=== PATIENT | male | born 1980 | race Caucasian/White ===

== ENCOUNTER 2018-01-27 17:42 | Emergency (ER) | payer OTHER ==
[2018-01-27] MEDS ORDERED: PROCHLORPERAZINE EDISYLATE INJ 10 MG/2 ML VIAL IV ONE (18:37)
[2018-01-27] MEDS ORDERED: NORMAL SALINE 1000 ML 1,000 ML IV ONE (18:37)
[2018-01-27] MEDS ORDERED: ONDANSETRON 4 MG TAB.RAPDIS PO ONE (18:37)
[2018-01-27 19:27] LABS: ABSOLUTE BASOPHILS # (AUTO) 0.1 10^3/uL (0.0-0.2); ABSOLUTE EOSINOPHILS # (AUTO) 0.2 10^3/uL (0.0-0.6); ABSOLUTE LYMPHOCYTES (AUTO) 3.6 10^3/uL (0.5-4.7); ABSOLUTE MONOCYTES (AUTO) 0.5 10^3/uL (0.1-1.4); BASOPHILS % (AUTO) 0.5 % (0-2); EOSINOPHILS % (AUTO) 1.6 % (0-6); HEMATOCRIT 42.8 % (37.9-51.0); HEMOGLOBIN 14.9 g/dL (13.5-17.0); LYMPHOCYTES % (AUTO) 34.8 % (13-45); MEAN CORPUSCULAR HEMOGLOBIN 29.3 pg (27.0-33.4); MEAN CORPUSCULAR HGB CONC 34.7 g/dL (32.0-36.0); MEAN CORPUSCULAR VOLUME 85 fl (80-97); MONOCYTES % (AUTO) 4.7 % (3-13); PLATELET COUNT 316 10^3/uL (150-450); RED BLOOD COUNT 5.07 10^6/uL (4.35-5.55); RED CELL DISTRIBUTION WIDTH 13.1 % (11.5-14.0); SEGMENTED NEUTROPHILS % (AUTO) 58.4 % (42-78); TOTAL CELLS COUNTED % (AUTO) 100 %; WHITE BLOOD COUNT 10.3 10^3/uL (4.0-10.5)
--- NOTE | 2018-01-27 19:38 | RADIOLOGY REPORT (SQ) ---
EXAM DESCRIPTION: CT HEAD WITHOUT COMPLETED DATE/TIME: 01/27/2018 7:24 pm REASON FOR STUDY: migraine oneill 10 day COMPARISON: 11/05/2013. TECHNIQUE: Axial images acquired through the brain without intravenous contrast. Images reviewed wi th bone, brain and subdural windows. Additional sagittal and coronal reconstructions were generated. Images stored on PACS. All CT scanners at this facility use dose modulation, iterative reconstruction, and/or weight based d osing when appropriate to reduce radiation dose to as low as reasonably achievable (ALARA). [facility]: Dose Right [facility]: CareDose [facility]: Dose Right [facility]: Teradose 4D [facility]: Smart [employer] RADIATION DOSE: CT Rad equipment meets quality standard of care and radiation dose reduction techniq ues were employed. CTDIvol: 53.2 mGy. DLP: 1017 mGy-cm. mGy. LIMITATIONS: None. FINDINGS: VENTRICLES: Normal size and contour. CEREBRUM: No masses. No hemorrhage. No midline shift. No evidence for acute infarction. Normal gra y/white matter differentiation. No areas of low density in the white matter. CEREBELLUM: No masses. No hemorrhage. No alteration of density. No evidence for acute infarction. EXTRAAXIAL SPACES: No fluid collections. No masses. ORBITS AND GLOBE: No intra- or extraconal masses. Normal contour of globe without masses. CALVARIUM: No fracture. PARANASAL SINUSES: Nodular mucous membrane thickening in the maxillary sinuses. No fluid. SOFT TISSUES: No mass or hematoma. OTHER: No other significant finding. IMPRESSION: NORMAL BRAIN CT WITHOUT CONTRAST. MAXILLARY SINUS DISEASE. EVIDENCE OF ACUTE STROKE: NO. COMMENT: Quality ID # [id number]: Final reports with documentation of one or more dose reduction techniques (e.g., Automated exposure control, adjustment of the mA and/or kV according to patient size, use of iterative reconstruction technique) TECHNICAL DOCUMENTATION: JOB ID: [id number] [employer]- All Rights Reserved Reading location - IP/workstation name: [email or web address]
--- NOTE | 2018-01-27 19:44 | ER Document Report ---
ED Headache - General Chief Complaint: Headache Stated Complaint: SEVERE HEADACHES Time Seen by Provider: 01/27/18 18:32 Notes: Patient is a 37-year-old male that comes emergency department for chief complaint of headache. He states he has a history of migraines, he got a migraine 10 days ago that occurred while he was outside working in the heat, he states that he hydrated over the next 2 days and then the third day when he started having headache he took sumatriptan and his headache resolved. He states he was doing better but then daily he keeps getting rebound headaches. He states today he had a severe one where he threw up and he thinks he passed out. He is describing photophobia, nausea, neck constant throbbing and pressure especially with the right side of his head. He denies fever chills, head injury, he states he had a head injury while he was in the service in the past. He is on Topamax, gabapentin, Flexeril. He also has IBS-D, just takes Lomotil for this. He follows with the [facility] clinic. TRAVEL OUTSIDE OF THE [place] IN LAST 30 DAYS: No - Related Data Allergies/Adverse Reactions: No Known Allergies Allergy (Verified 01/27/18 18:23) Past Medical History - General Information source: Patient - Social History Smoking Status: Current Every Day Smoker Chew tobacco use (# tins/day): No Drug Abuse: None Lives with: Family Family History: Other - unable to obtain Patient has suicidal ideation: No Patient has homicidal ideation: No Neurological Medical History: Reports: Hx Migraine Renal/ Medical History: Denies: Hx Peritoneal Dialysis GI Medical History: Reports: Hx Gastroesophageal Reflux Disease Psychiatric Medical History: Reports: Hx Post Traumatic Stress Disorder Past Surgical History: Reports: Hx Appendectomy, Hx Bowel Surgery, Hx Oral Surgery, Hx Orthopedic Surgery - knee, Hx Tonsillectomy Review of Systems - Review of Systems Constitutional: No symptoms reported EENT: No symptoms reported Cardiovascular: No symptoms reported Respiratory: No symptoms reported Gastrointestinal: See HPI Genitourinary: No symptoms reported Male Genitourinary: No symptoms reported Musculoskeletal: No symptoms reported Skin: No symptoms reported Hematologic/Lymphatic: No symptoms reported Neurological/Psychological: See HPI Physical Exam - Vital signs Vitals: Temp Pulse Resp BP Pulse Ox 99.1 F 112 H 16 149/93 H 97 01/27/18 17:48 01/27/18 17:48 01/27/18 17:48 01/27/18 17:48 01/27/18 17:48 - Notes Notes: GENERAL: Alert, interacts well. Patient squinting his eyes and appears to be uncomfortable. HEAD: Normocephalic, atraumatic. EYES: Pupils equal, round, and reactive to light. Extraocular movements intact. ENT: Oral mucosa moist, tongue midline. [Nares patent, no nasal septal hematoma , TM's intact.] NECK: Full range of motion. Supple. Trachea midline. Specifically no nuchal rigidity. LUNGS: Clear to auscultation bilaterally, no wheezes, rales, or rhonchi. No respiratory distress. HEART: Regular rate and rhythm. No murmur ABDOMEN: Soft, non-tender. Non-distended. Bowel sounds present in all 4 quadrants. EXTREMITIES: Moves all 4 extremities spontaneously. No edema, normal radial and dorsalis pedis pulses bilaterally. No cyanosis. BACK: no cervical, thoracic, lumbar midline tenderness. No saddle anesthesia, normal distal neurovascular exam. NEUROLOGICAL: Alert and oriented x3. Normal speech. [cranial nerves II through XII grossly intact]. SKIN: Warm, dry, normal turgor. No rashes or lesions noted. Course - Re-evaluation Re-evalutation: Patient has a normal neurological exam, however he does appear very uncomfortable, CAT scan from triage was reviewed, shows no acute findings. Possible maxillary sinus disease. Patient was medicated for his headache, on reevaluation patient sleeping, he was aroused, afterwards he states his headache is completely gone. Due to intermittent headaches with history of headaches, description of headache, no sudden onset, and complete resolution I have low suspicion of meningitis, subarachnoid hemorrhage, venous sinus thrombosis, or other emergent etiology. Vital signs unremarkable, mild tachycardia has normalized, no nuchal rigidity or fever, no other symptoms reported. Patient stating he is ready to leave. Discussed workup, follow-up, return precautions with patient in detail. Forgot to discuss questionable maxillary sinus disease from CAT scan with patient, he did not have any congestion or maxillary sinus tenderness, however I called him at [phone] and left a message after he did not brick picker with multiple attempts, informed him of this finding and different considerations. - Vital Signs Vital signs: Temp Pulse Resp BP Pulse Ox 97.6 F 76 18 137/79 H 96 01/27/18 22:04 01/27/18 22:04 01/27/18 22:04 01/27/18 22:04 01/27/18 22:04 - Laboratory Result Diagrams: 01/27/18 19:05 01/27/18 19:05 Laboratory results interpreted by me: 01/27/18 19:05 Chloride 108 H Discharge - Discharge Clinical Impression: Headache Qualifiers: Headache type: unspecified Headache chronicity pattern: acute headache Intractability: not intractable Qualified Code(s): R51 - Headache Vomiting Qualifiers: Vomiting type: unspecified Vomiting Intractability: non-intractable Nausea presence: with nausea Qualified Code(s): R11.2 - Nausea with vomiting, unspecified Episode of syncope Qualifiers: Syncope type: unspecified Qualified Code(s): R55 - Syncope and collapse Condition: Stable Disposition: HOME, SELF-CARE Additional Instructions: Your evaluation in response to treatment are most consistent with a migraine. The imaging of your head, the laboratory workup, and your evaluation otherwise do not show any concerning findings. Continue current medications for headaches , follow-up with your provider for additional management. See additional recommendations on syncope listed below. Return if you worsen including fever, vomiting, passing out again, severe headache, or any other concerning symptoms. Syncopal Episode Syncope (fainting or near-fainting) can occur from many different health problems. Or it can be a simple fainting spell requiring no treatment. It is safe for you to go home, but further evaluation will likely be necessary. Your work-up may include tests for internal bleeding, heart disease, medication problems, or near-strokes. Tests are not always required, however, depending on the nature of your problem. The warning signs of an impending faint include: dizziness, lightheadedness , nausea, hot flashes, tingling, and weakness. If this happens, lay down and put your feet up, then wait until all of these symptoms have passed before standing up again. If these episodes become recurrent, or if you develop chest pain, heart palpitations, mental confusion, blurred vision, or headache, then you should call the physician, or go to the emergency room. Forms: Return to Work
[2018-01-27] MEDS ORDERED: KETOROLAC TROMETHAMINE INJ/PF 30 MG/1 ML SDV IV ONE (19:45)
[2018-01-27] MEDS ORDERED: DEXAMETHASONE SOD PHOS INJ 10 MG/1 ML VIAL IV ONE (19:45)
[2018-01-27] MEDS ORDERED: DIPHENHYDRAMINE HCL 50 MG/ML VIAL IV ONE (19:45)
[2018-01-27 19:47] LABS: ANION GAP 13 (5-19); BLOOD UREA NITROGEN 17 mg/dL (7-20); CALCIUM 9.5 mg/dL (8.4-10.2); CARBON DIOXIDE 22 mmol/L (22-30); CHLORIDE 108 mmol/L (98-107); GLUCOSE 84 mg/dL (75-110); POTASSIUM 3.9 mmol/L (3.6-5.0); SODIUM 142.7 mmol/L (137-145)
--- NOTE | 2018-01-27 19:52 | ER Document Report ---
ED Medical Screen (RME) - General Chief Complaint: Headache Stated Complaint: SEVERE HEADACHES Time Seen by Provider: 01/27/18 18:32 TRAVEL OUTSIDE OF THE [place] IN LAST 30 DAYS: No - HPI Notes: 01/27/18 19:52 Chronic migraine with no relief in his pain with home meds no current imaging no trauma - Related Data Allergies/Adverse Reactions: No Known Allergies Allergy (Verified 01/27/18 18:23) Past Medical History - Social History Chew tobacco use (# tins/day): No Drug Abuse: None Neurological Medical History: Reports: Hx Migraine Renal/ Medical History: Denies: Hx Peritoneal Dialysis GI Medical History: Reports: Hx Gastroesophageal Reflux Disease Psychiatric Medical History: Reports: Hx Post Traumatic Stress Disorder Past Surgical History: Reports: Hx Appendectomy, Hx Bowel Surgery, Hx Oral Surgery, Hx Orthopedic Surgery - knee, Hx Tonsillectomy Review of Systems - Review of Systems Constitutional: Other - Migraine headache Physical Exam - Vital signs Vitals: Temp Pulse Resp BP Pulse Ox 99.1 F 112 H 16 149/93 H 97 01/27/18 17:48 01/27/18 17:48 01/27/18 17:48 01/27/18 17:48 01/27/18 17:48 - General General appearance: Appears well In distress: None Course - Vital Signs Vital signs: Temp Pulse Resp BP Pulse Ox 99.1 F 112 H 16 149/93 H 97 01/27/18 17:48 01/27/18 17:48 01/27/18 17:48 01/27/18 17:48 01/27/18 17:48 - Laboratory Result Diagrams: 01/27/18 19:05 01/27/18 19:05 Laboratory results interpreted by me: 01/27/18 19:05 Chloride 108 H
[2018-01-27 22:05] VITALS: BP 137/79
== END 2018-01-27 22:05 | disposition home or self-care (01) ==
LOC: ER 17:42
DX: R51 Headache (principal); R11.2 Nausea with vomiting, unspecified; R55 Syncope and collapse; F17.200 Nicotine dependence, unspecified, uncomplicated
CPT/HCPCS: 99284; 96361; 96374; 96375; 36415; 85025; 80048; 70450; J1200; S0119; J1885; J0780; J7030; J1100

== ENCOUNTER 2018-09-14 14:39 | Emergency (ER) | payer OTHER ==
[2018-09-14] MEDS ORDERED: ONDANSETRON 4 MG TAB.RAPDIS PO ONE (16:45)
[2018-09-14] MEDS ORDERED: IBUPROFEN 800 MG TABLET PO ONE (16:45)
--- NOTE | 2018-09-14 16:47 | ER Document Report ---
ED Medical Screen (RME) - General Chief Complaint: Headache Stated Complaint: HEADACHE Time Seen by Provider: 09/14/18 16:45 Mode of Arrival: Ambulatory Information source: Patient Notes: 37-year-old male presented to ED for complaint of migraine for the last 30 days. He states he has not used his nerve stimulator ibuprofen ibuprofen gabapentin Adderall naproxen tripped and multiple other medications with no relief. He states he has had headaches as long as 108 days in the past. He states he goes to the [facility] and they sent him to the emergency room. He states he has a history of a tonsillectomy and appendectomy and soft palate removal uvula removal: [facility] knee surgeries 14 ingrown toenail removals and ganglion cyst and multiple mole removals. 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 Knee injuries and TBI while in the . He states he also has PTSD anxiety ADD and is homeless living in his car. Patient states since his kicked him out of the house and The house and the kids he has been living out of his car and has increased his cigarettes to a pack a day and drink occasionally. I have greeted and performed a rapid initial assessment of this patient. A comprehensive ED assessment and evaluation of the patient, analysis of test results and completion of medical decision making process will be conducted by an additional ED providers. TRAVEL OUTSIDE OF THE [place] IN LAST 30 DAYS: No - Related Data Allergies/Adverse Reactions: No Known Allergies Allergy (Verified 09/14/18 14:43) Past Medical History - Social History Chew tobacco use (# tins/day): No Frequency of alcohol use: Occasional Drug Abuse: None Neurological Medical History: Reports: Hx Migraine Renal/ Medical History: Denies: Hx Peritoneal Dialysis GI Medical History: Reports: Hx Gastroesophageal Reflux Disease Psychiatric Medical History: Reports: Hx Attention Deficit Hyperactivity Disorder, Hx Depression - PTSD/Anxiety, Hx Post Traumatic Stress Disorder Past Surgical History: Reports: Hx Abdominal Surgery - colon stapled/3in removed, Hx Appendectomy, Hx Bowel Surgery, Hx Oral Surgery - molars/wisdom teeth, Hx Orthopedic Surgery - knee, Hx Tonsillectomy - &uvula/soft palate Physical Exam - Vital signs Vitals: Temp Pulse Resp BP Pulse Ox 98.2 F 111 H 18 145/104 H 96 09/14/18 14:45 09/14/18 14:45 09/14/18 14:45 09/14/18 14:45 09/14/18 14:45 Course - Vital Signs Vital signs: Temp Pulse Resp BP Pulse Ox 98.2 F 111 H 18 145/104 H 96 09/14/18 14:45 09/14/18 14:45 09/14/18 14:45 09/14/18 14:45 09/14/18 14:45
[2018-09-14 18:17] LABS: ABSOLUTE BASOPHILS # (AUTO) 0.1 10^3/uL (0.0-0.2); ABSOLUTE EOSINOPHILS # (AUTO) 0.1 10^3/uL (0.0-0.6); ABSOLUTE LYMPHOCYTES (AUTO) 3.1 10^3/uL (0.5-4.7); ABSOLUTE MONOCYTES (AUTO) 0.7 10^3/uL (0.1-1.4); ABSOLUTE NEUT (AUTO) 4.4 10^3/uL (1.7-8.2); BASOPHILS % (AUTO) 0.8 % (0-2); EOSINOPHILS % (AUTO) 0.9 % (0-6); HEMATOCRIT 46.1 % (37.9-51.0); HEMOGLOBIN 16.1 g/dL (13.5-17.0); LYMPHOCYTES % (AUTO) 37.1 % (13-45); MEAN CORPUSCULAR HEMOGLOBIN 29.7 pg (27.0-33.4); MEAN CORPUSCULAR HGB CONC 34.9 g/dL (32.0-36.0); MEAN CORPUSCULAR VOLUME 85 fl (80-97); MONOCYTES % (AUTO) 8.4 % (3-13); PLATELET COUNT 304 10^3/uL (150-450); RED BLOOD COUNT 5.41 10^6/uL (4.35-5.55); RED CELL DISTRIBUTION WIDTH 12.8 % (11.5-14.0); SEGMENTED NEUTROPHILS % (AUTO) 52.8 % (42-78); TOTAL CELLS COUNTED % (AUTO) 100 %; WHITE BLOOD COUNT 8.4 10^3/uL (4.0-10.5)
[2018-09-14 18:36] LABS: ALANINE AMINOTRANSFERASE 42 U/L (21-72); ALKALINE PHOSPHATASE 73 U/L (38-126); ANION GAP 12 (5-19); ASPARTATE AMINO TRANSFERASE 23 U/L (17-59); BILIRUBIN,DIRECT 0.2 mg/dL (0.0-0.4); BILIRUBIN,TOTAL 0.3 mg/dL (0.2-1.3); BLOOD UREA NITROGEN 18 mg/dL (7-20); CALCIUM 9.2 mg/dL (8.4-10.2); CARBON DIOXIDE 26 mmol/L (22-30); CHLORIDE 102 mmol/L (98-107); GLUCOSE 92 mg/dL (75-110); POTASSIUM 4.1 mmol/L (3.6-5.0); SODIUM 139.8 mmol/L (137-145); TOTAL PROTEIN 7.5 g/dL (6.3-8.2)
[2018-09-14 19:13] LABS: APPEARANCE,URINE CLEAR; BILIRUBIN,URINE NEGATIVE (NEGATIVE); COLOR,URINE YELLOW; GLUCOSE, URINE NEGATIVE (NEGATIVE); KETONES,URINE NEGATIVE (NEGATIVE); LEUKOCYTE ESTERASE,URINE NEGATIVE (NEGATIVE); NITRITE,URINE NEGATIVE (NEGATIVE); PROTEIN,URINE NEGATIVE (NEGATIVE); URINE SPECIFIC GRAVITY 1.016; UROBILINOGEN,URINE NEGATIVE mg/dL (<2.0)
[2018-09-14 19:27] LABS: URINE AMPHETAMINES SCREEN UNCONFIRMED POSITIVE; URINE BARBITURATES SCREEN NEGATIVE; URINE BENZODIAZEPINES SCREEN NEGATIVE; URINE COCAINE SCREEN NEGATIVE; URINE MARIJUANA (THC) SCREEN NEGATIVE; URINE METHADONE SCREEN NEGATIVE; URINE PHENCYCLIDINE SCREEN NEGATIVE
[2018-09-14] MEDS ORDERED: DIPHENHYDRAMINE HCL 50 MG/ML VIAL IV ONE (20:07)
[2018-09-14] MEDS ORDERED: PROCHLORPERAZINE EDISYLATE INJ 10 MG/2 ML VIAL IV ONE (20:07)
[2018-09-14] MEDS: NORMAL SALINE 1000 ML 1,000 ML IV PRN ×2 (20:19→22:35)
[2018-09-14] MEDS ORDERED: DEXAMETHASONE SOD PHOS INJ 10 MG/1 ML VIAL IV ONE (20:32)
[2018-09-14] MEDS: MAGNESIUM SULFATE/D5W 1 GM/100 ML RTUPB IV SCH ×2 (20:42→21:48)
[2018-09-15 00:56] VITALS: BP 131/77
--- NOTE | 2018-09-15 03:14 | ER Document Report ---
Entered by BELGICA NUÑEZ SCRIBE 09/14/[id number] Acting as scribe for:ISIDRO BE DO ED Headache - General Chief Complaint: Headache Stated Complaint: HEADACHE Time Seen by Provider: 09/14/18 16:45 Primary Care Provider: [facility] [Primary Care Provider] - Follow up as needed Mode of Arrival: Ambulatory Notes: 37-year-old male who presents to the emergency department today with complaints of a right-sided headache. Patient suffers from chronic migraines and states they usually last for several weeks. Patient states that his current headache is been present for 38-40 days. Patient states he called his neurologist, Dr. Nunez, who told him to come into the emergency department tonight. Patient denies any trauma, numbness, tingling, or weakness. TRAVEL OUTSIDE OF THE [place] IN LAST 30 DAYS: No - Related Data Allergies/Adverse Reactions: No Known Allergies Allergy (Verified 09/14/18 14:43) Past Medical History - General Information source: Patient - Social History Smoking Status: Current Every Day Smoker Cigarette use (# per day): Yes Chew tobacco use (# tins/day): No Frequency of alcohol use: Occasional Drug Abuse: None Family History: Other - unable to obtain Patient has suicidal ideation: No Patient has homicidal ideation: No Neurological Medical History: Reports: Hx Migraine GI Medical History: Reports: Hx Gastroesophageal Reflux Disease Psychiatric Medical History: Reports: Hx Attention Deficit Hyperactivity Disorder - on Adderall, Hx Depression - PTSD/Anxiety, Hx Post Traumatic Stress Disorder Past Surgical History: Reports: Hx Abdominal Surgery - colon stapled/3in removed, Hx Appendectomy, Hx Bowel Surgery, Hx Oral Surgery - molars/wisdom teeth, Hx Orthopedic Surgery - knee, Hx Tonsillectomy - &uvula/soft palate Review of Systems - Review of Systems Constitutional: No symptoms reported EENT: No symptoms reported Cardiovascular: No symptoms reported Respiratory: No symptoms reported Gastrointestinal: No symptoms reported Genitourinary: No symptoms reported Male Genitourinary: No symptoms reported Musculoskeletal: No symptoms reported Skin: No symptoms reported Hematologic/Lymphatic: No symptoms reported Neurological/Psychological: See HPI, Headaches. denies: Weakness -: Yes All other systems reviewed and negative Physical Exam - Vital signs Vitals: Temp Pulse Resp BP Pulse Ox 98.2 F 111 H 18 145/104 H 96 09/14/18 14:45 09/14/18 14:45 09/14/18 14:45 09/14/18 14:45 09/14/18 14:45 Interpretation: Normal - General General appearance: Appears well, Alert - HEENT Head: Normocephalic, Atraumatic Eyes: Normal Pupils: PERRL - Respiratory Respiratory status: No respiratory distress Chest status: Nontender Breath sounds: Normal Chest palpation: Normal - Cardiovascular Rhythm: Regular, Tachycardia Heart sounds: Normal auscultation Murmur: No - Abdominal Inspection: Normal Distension: No distension Bowel sounds: Normal Tenderness: Nontender Organomegaly: No organomegaly - Back Back: Normal, Nontender - Extremities General upper extremity: Normal inspection, Nontender, Normal color, Normal ROM, Normal temperature General lower extremity: Normal inspection, Nontender, Normal color, Normal ROM, Normal temperature, Normal weight bearing. No: Jean Marie's sign - Neurological Neuro grossly intact: Yes Cognition: Normal Orientation: AAOx4 [place] Coma Scale Eye Opening: Spontaneous Felipe Coma Scale Verbal: Oriented [place] Coma Scale Motor: Obeys Commands [place] Coma Scale Total: 15 Speech: Normal Cranial nerves: Normal Motor strength normal: LUE, RUE, LLE, RLE Sensory: Normal - Psychological Associated symptoms: Normal affect, Normal mood - Skin Skin Temperature: Warm Skin Moisture: Dry Skin Color: Normal Course - Re-evaluation Re-evalutation: 09/14/18 21:25 Patient is sleeping and in no apparent pain 09/15/18 00:12 Patient's headache is nearly completely gone. Offered more Compazine the patient states he would prefer to go home. Given a list of medications that he received in the emergency department so that he can follow-up with his neurologist. Of note, imaging of head from January was within normal limits. Patient is at his baseline. Neurovascularly intact. No acute findings on blood work. Stable for discharge. Return if any worsening or concerning symptoms. Understands agrees with plan. Stable for discharge home. Grateful for care. - Vital Signs Vital signs: Temp Pulse Resp BP Pulse Ox 97.6 F 72 19 131/77 H 98 09/15/18 00:46 09/15/18 00:46 09/15/18 00:46 09/15/18 00:46 09/15/18 00:46 - Laboratory Result Diagrams: 09/14/18 17:55 09/14/18 17:55 Laboratory results interpreted by me: 09/14/18 17:55 Urine Blood MODERATE H Discharge - Discharge Clinical Impression: Headache Qualifiers: Headache type: unspecified Headache chronicity pattern: episodic headache Intractability: not intractable Qualified Code(s): R51 - Headache Condition: Stable Disposition: HOME, SELF-CARE Instructions: Migraine Headache ([facility]) Prescriptions: Ondansetron [Zofran Odt 4 mg Tablet] 4 mg PO Q4HP PRN #30 tab.rapdis PRN Reason: Prochlorperazine Maleate [Compazine 10 mg Tablet] 10 mg PO ASDIR PRN #20 tablet PRN Reason: Referrals: [facility] [Primary Care [facility]] - Follow up tomorrow Terry Attestation: 09/15/18 03:14 I personally performed the services described in the documentation, reviewed and edited the documentation which was dictated to the scribe in my presence, and it accurately records my words and actions. Scribe Documentation - Scribe Written by Terry:: Terry Davenport, 09/14/[id number] acting as scribe for :: Ruby I personally performed the services described in the documentation, reviewed and edited the documentation which was dictated to the scribe in my presence, and it accurately records my words and actions.
== END 2018-09-15 00:56 | disposition home or self-care (01) ==
LOC: ER 14:39
DX: R51 Headache (principal); F17.210 Nicotine dependence, cigarettes, uncomplicated
CPT/HCPCS: 99284; 96361; 96375; 96365; 96366; 36415; 85025; 80053; 81001; 80307; J1200; S0119; J3475; J0780; J7030; J1100

== ENCOUNTER 2019-10-29 22:42 | Emergency (ER) | payer OTHER ==
[2019-10-29] MEDS ORDERED: ONDANSETRON HCL INJ/PF 4 MG/2 ML SDV IV ONE (23:20)
[2019-10-29] MEDS ORDERED: MORPHINE SULFATE 10 MG/ML INJ IV ONE (23:20)
--- NOTE | 2019-10-29 23:21 | ER Document Report ---
ED Medical Screen (RME) - General Chief Complaint: Back Pain Stated Complaint: BACK PAIN/LOSS OF LEG FEELING Primary Care Provider: [facility] [Primary Care Provider] - Follow up as needed Notes: Patient is a 39-year-old white male with a past medical history of chronic lower back pain who presents to the emergency department the chief complaint of acute on chronic lower back pain. States the pain started earlier today primarily in the left low back. Radiation to bilateral legs. States the legs occasionally feel weak from time to time. Admits to some urinary troubles with hesitancy. Admits to chronic microscopic hematuria that was evaluated by urology and noted to be normal. Denies history of kidney stones. I have treated and performed a rapid initial assessment of this patient. A comprehensive ED assessment and evaluation of the patient, analysis of test results and completion of medical decision making process will be conducted by additional ED providers. PHYSICAL EXAMINATION: GENERAL: Well-appearing, well-nourished and in no acute distress. A&Ox4. Answers questions appropriately. TRAVEL OUTSIDE OF THE [place] IN LAST 30 DAYS: No - Related Data Allergies/Adverse Reactions: No Known Allergies Allergy (Verified 09/14/18 14:43) Home Medications: ritailin, Past Medical History Neurological Medical History: Reports: Hx Migraine Renal/ Medical History: Denies: Hx Peritoneal Dialysis GI Medical History: Reports: Hx Gastroesophageal Reflux Disease Psychiatric Medical History: Reports: Hx Attention Deficit Hyperactivity Disorder - on Adderall, Hx Depression - PTSD/Anxiety, Hx Post Traumatic Stress Disorder Past Surgical History: Reports: Hx Abdominal Surgery - colon stapled/3in removed, Hx Appendectomy, Hx Bowel Surgery, Hx Oral Surgery - molars/wisdom teeth, Hx Orthopedic Surgery - knee, Hx Tonsillectomy - &uvula/soft palate Physical Exam - Vital signs Vitals: Temp Pulse Resp BP Pulse Ox 97.3 F 122 H 24 H 189/89 H 98 10/29/19 22:48 10/29/19 22:48 10/29/19 22:48 10/29/19 22:48 10/29/19 22:48 Course - Vital Signs Vital signs: Temp Pulse Resp BP Pulse Ox 97.3 F 122 H 24 H 189/89 H 98 10/29/19 22:48 10/29/19 22:48 10/29/19 22:48 10/29/19 22:48 10/29/19 22:48 Doctor's Discharge - Discharge Referrals: [facility] [Primary Care [facility]] - Follow up as needed
[2019-10-30 00:27] LABS: ABSOLUTE BASOPHILS # (AUTO) 0.1 10^3/uL (0.0-0.2); ABSOLUTE EOSINOPHILS # (AUTO) 0.1 10^3/uL (0.0-0.6); ABSOLUTE LYMPHOCYTES (AUTO) 3.1 10^3/uL (0.5-4.7); ABSOLUTE MONOCYTES (AUTO) 0.6 10^3/uL (0.1-1.4); TOTAL CELLS COUNTED % (AUTO) 100 %
[2019-10-30 00:35] LABS: ABSOLUTE NEUT (AUTO) 6.1 10^3/uL (1.7-8.2); BASOPHILS % (AUTO) 0.5 % (0-2); EOSINOPHILS % (AUTO) 1.3 % (0-6); HEMATOCRIT 42.4 % (37.9-51.0); HEMOGLOBIN 14.9 g/dL (13.5-17.0); LYMPHOCYTES % (AUTO) 31.1 % (13-45); MEAN CORPUSCULAR HEMOGLOBIN 29.5 pg (27.0-33.4); MEAN CORPUSCULAR VOLUME 84 fl (80-97); MONOCYTES % (AUTO) 5.8 % (3-13); PLATELET COUNT 333 10^3/uL (150-450); RED BLOOD COUNT 5.03 10^6/uL (4.35-5.55); RED CELL DISTRIBUTION WIDTH 13.1 % (11.5-14.0); SEGMENTED NEUTROPHILS % (AUTO) 61.3 % (42-78); WHITE BLOOD COUNT 9.9 10^3/uL (4.0-10.5)
[2019-10-30 01:09] LABS: APPEARANCE,URINE SLIGHTLY-CLOUDY; BILIRUBIN,URINE NEGATIVE (NEGATIVE); COLOR,URINE YELLOW; GLUCOSE, URINE NEGATIVE (NEGATIVE); KETONES,URINE TRACE mg/dL (NEGATIVE); LEUKOCYTE ESTERASE,URINE NEGATIVE (NEGATIVE); NITRITE,URINE NEGATIVE (NEGATIVE); PROTEIN,URINE 30 mg/dL (NEGATIVE); URINE SPECIFIC GRAVITY 1.029; UROBILINOGEN,URINE NEGATIVE mg/dL (<2.0)
[2019-10-30] MEDS ORDERED: METHYLPREDNISOLONE INJ 125 MG/2 ML SDV IV ONE (01:20)
[2019-10-30 01:44] LABS: ALBUMIN 4.2 g/dL (3.5-5.0); ALKALINE PHOSPHATASE 56 U/L (38-126); ANION GAP 5 (5-19); ASPARTATE AMINO TRANSFERASE 26 U/L (17-59); BILIRUBIN,TOTAL 0.5 mg/dL (0.2-1.3); BLOOD UREA NITROGEN 21 mg/dL (7-20); CALCIUM 9.3 mg/dL (8.4-10.2); CARBON DIOXIDE 27 mmol/L (22-30); CHLORIDE 103 mmol/L (98-107); GLUCOSE 86 mg/dL (75-110); POTASSIUM 4.4 mmol/L (3.6-5.0); TOTAL PROTEIN 6.9 g/dL (6.3-8.2)
[2019-10-30] MEDS ORDERED: MORPHINE SULFATE 10 MG/ML INJ IV ONE (02:53)
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
[2019-10-30] MEDS ORDERED: DIAZEPAM INJ 10 MG/2 ML DISP.SYRIN IV ONE (03:18)
--- NOTE | 2019-10-30 04:35 | RADIOLOGY REPORT (SQ) ---
EXAM: XR Lumbosacral Spine, 5 Views EXAM DATE/TIME: 10/30/2019 4:07 AM CLINICAL HISTORY: The patient is 39 years old and is Male; lumbar pain TECHNIQUE: Frontal, lateral and oblique views of the lumbar spine. COMPARISON: No relevant prior studies available. FINDINGS: VERTEBRAE: No obvious acute fracture. Normal alignment. SACRUM/COCCYX: Unremarkable as visualized. No acute fracture. DISC SPACES: No acute findings. No significant narrowing. SOFT TISSUES: Unremarkable. IMPRESSION: No acute findings.
--- NOTE | 2019-10-30 06:08 | RADIOLOGY REPORT (SQ) ---
EXAM: CT Angiography Abdomen and Pelvis Without and With Intravenous Contrast EXAM DATE/TIME: 10/30/2019 4:48 AM CLINICAL HISTORY: The patient is 39 years old and is Male; low back pain and hematuria TECHNIQUE: Axial computed tomographic angiography images of the abdomen and pelvis without and with intravenous contrast. Sagittal and coronal reformatted images were created and reviewed. Delayed images were obtained. This CT exam was performed using one or more of the following dose reduction techniques: automated exposure control, adjustment of the mA and/or kV according to patient size, and/or use of iterative reconstruction technique. MIP reconstructed images were created and reviewed. COMPARISON: Radiographs of the lumbar spine from 10/30/2019 FINDINGS: VASCULATURE: AORTA: No acute findings. No abdominal aortic aneurysm. No dissection. CELIAC TRUNK AND MESENTERIC ARTERIES: No acute findings. No occlusion or significant stenosis. RENAL ARTERIES: No acute findings. No occlusion or significant stenosis. ILIAC ARTERIES: No acute findings. No occlusion or significant stenosis. LUNG BASES: Minimal dependent atelectasis in the lung bases. ABDOMEN: LIVER: There is mild diffuse fatty infiltration of the liver. No obvious liver mass. GALLBLADDER AND BILE DUCTS: Unremarkable. No calcified stones. No significant biliary ductal dilation. PANCREAS: Unremarkable. No ductal dilation. No mass. SPLEEN: Unremarkable. No splenomegaly. ADRENALS: Unremarkable. No obvious adrenal mass or nodule. KIDNEYS AND URETERS: Small left renal cyst. There is also a small exophytic lesion at the anterior aspect of the right kidney which is favored to represent a slightly hyperdense cyst. However, this is difficult to fully characterize due to its small size. There is no hydronephrosis. No renal or ureteral stones. No significant perinephric stranding. STOMACH AND BOWEL: No evidence of bowel obstruction. No significant bowel wall thickening. PELVIS: APPENDIX: No findings to suggest acute appendicitis. BLADDER: Unremarkable. No stones. No mass. REPRODUCTIVE: Unremarkable as visualized. ABDOMEN and PELVIS: INTRAPERITONEAL SPACE: Unremarkable. No significant fluid collection. No free air. BONES/JOINTS: No acute fracture. No dislocation. SOFT TISSUES: Unremarkable. LYMPH NODES: No significant lymph node enlargement. IMPRESSION: No acute findings visualized within the abdomen or pelvis. No abdominal aortic aneurysm or dissection.
[2019-10-30 06:29] VITALS: BP 139/96
== END 2019-10-30 06:42 | disposition home or self-care (01) ==
LOC: ER 22:42
DX: M54.30 Sciatica, unspecified side (principal); M54.9 Dorsalgia, unspecified; R20.0 Anesthesia of skin; F41.9 Anxiety disorder, unspecified; M54.5 Low back pain; R53.1 Weakness; F17.210 Nicotine dependence, cigarettes, uncomplicated; Z79.899 Other long term (current) drug therapy
CPT/HCPCS: 96376; 99284; 96374; 96375; 36415; 83690; 85025; 80053; 81001; 72110; 74174; J3360; J2930; J2270; J2405